=== PATIENT | male | born 1935 | race African-American/Black ===

== ENCOUNTER 2018-12-11 13:49 | Emergency (ER) | payer MEDICARE, OTHER ==
[~2018-12-11] VITALS: Ht 175.3 cm; Wt 67.0 kg
[2018-12-11 14:07] VITALS: BP 108/67; PULSE 67; RESP 16; Ht 175.3 cm; Wt 67.0 kg
[2018-12-11] MEDS ORDERED: LEVETIRACETAM 1000 MG (PMX) 100 ML IVPB STA (14:14)
[2018-12-11] MEDS ORDERED: SOD CHLORIDE 0.9% 1,000 ML IV STA (14:14)
--- NOTE | 2018-12-11 14:33 | ERD ---
ER Documentation Chief Complaint Chief Complaint PT FOUND IN PUBLIC LOCATION [facility] This is an 83-year-old man who is homeless who is found on the ground unconscious by bystanders in the street. They called EMS. When they arrived the patient was oriented x1. However when he got to the emergency department the patient was awake and alert and oriented x4. The patient is not very forthcoming about his history and he says that he "just had a seizure". I asked him if he takes seizure medication he says he does but does not know the name of it and that he has been taking it but he will not answer anything else. He is very resistant to me asking him questions and stays quiet on purpose and tries not answer me. I asked if is possible that he could have passed out and he states "yea what ever, I guess I could have". He is denying any pain or physical complaints ROS All systems reviewed and are negative except as per history of present illness. Medications Home Meds No Active Prescriptions or Reported Meds Allergies Allergies: Coded Allergies: No Known Allergy (Unverified , 12/11/18) FmHx Family History: No coronary disease Physical Exam Vitals Vital Signs Date Temp Pulse Resp B/P (MAP) Pulse Ox O2 O2 Flow FiO2 Time Delivery Rate 12/11/18 98.9 67 16 108/67 96 14:07 (81) Physical Exam Const: Well-developed, well-nourished, disheveled Head: Atraumatic, normocephalic Eyes: Normal Conjunctiva, PERRLA, EOMI, normal sclera, no nystagmus ENT: Normal External Ears, Nose and Mouth, moist mucus membranes. Neck: Full range of motion. No meningismus, no lymphadenopathy. Resp: Clear to auscultation bilaterally, no wheezing, rhonchi, rales Cardio: Regular rate and rhythm, no murmurs, S1 S2 present Abd: Soft, non tender x 4, non distended. Normal bowel sounds, no guarding or rebound, no pulsitile abdominal masses or bruits Skin: No petechiae or rashes, no ecchymosis , no maculopapular rash Back: No midline or flank tenderness Ext: No cyanosis, or edema, FROM x 4, normal inspection, neurovascularly intact x 4 Neur: Awake and alert, STR 5/5 x 4, sensation intact x 4, no focal findings, cerebellum intact Psych: Normal Mood and Affect Results 24 hrs Current Medications Medications Dose Sig/Lui Start Time Status Last (Trade) Ordered Route PRN Stop Time Admin Dose Reason Admin Sodium 1,000 ml @ Q1H STAT 12/11/18 Chloride 1,000 mls/hr IV 14:14 12/11/18 15:13 100 ml @ ONCE STAT 12/11/18 DC Levetiracetam 400 mls/hr IVPB 14:14 12/11/18 14:28 Procedures/MDM The patient is refusing any blood draw, CAT scan, Keppra or any treatment whatsoever. Tried discussed with him the need to do some testing to rule out any life- threatening pathology however he states that he does not want any intervention from us here he says he wants to leave and go back to where he came from. I just told him the risk of doing so could be life-threatening, he says he understands and wants to leave I will have him sign out AMA The patient is awake alert oriented and coherent to make his own decisions Departure Diagnosis: Primary Impression: Altered level of consciousness Condition: CARLOS Vital DO Dec 11, 2018 14:33
== END 2018-12-11 17:21 | disposition left against medical advice (07) ==
LOC: E/R 13:49
DX: R41.82 Altered mental status, unspecified (principal); R40.2142 Coma scale, eyes open, spontaneous, at arrival to emergency department; R40.2362 Coma scale, best motor response, obeys commands, at arrival to emergency department; R40.2252 Coma scale, best verbal response, oriented, at arrival to emergency department
CPT/HCPCS: 71045; 99283; J1953; J7030